=== PATIENT | female | born 1980 | race Caucasian/White ===

== ENCOUNTER 2023-01-27 15:42 | Outpatient (REF) | payer OTHER, SELFPAY ==
--- NOTE | 2023-01-27 15:00 | LIPBX_PTH ---
PATIENT: Roseline Cordova LOC: [facility] U#:[id number] AGE/SX: 42/F ROOM: RE01/27/[address]: Dallas Pink MD : 1980 BED: DIS: 01/27/2023 SPEC #: [id number] RECD: 01/27/23 18:12 STATUS: LORETTA REQ #: [id number] ROLANDO: 01/27/23 15:[address]: Dallas Pink DEPT: Surgical Specimen RECD BY: Alisha Ames ENTERED: 01/27/23 18:12 SP TYPE: LIPBX OTHR DR: Mitra Cha Tissues: 1 - LIP BIOPSY/RESECTION Procedures: GROSS AND MICRO LEVEL 4 Comments: [id number]
== END 2023-01-27 15:43 | disposition home or self-care (01) ==
LOC: LBN 15:42
PROVIDERS: PCP Family Medicine; Visit Provider Otolaryngology
DX: R23.4 Changes in skin texture (principal)
CPT/HCPCS: 88305